=== PATIENT | female | born 1950 | race Caucasian/White ===

== ENCOUNTER → 2018-07-24 | Day surgery (SDC) | payer MEDICARE, OTHER ==
[~2018-07-24] MED LIST: ALLOPURINOL 30300 M1 PO; ATORVASTATIN CA40 MG PO; COUMADIN 4 MG TA4 M1 PO; FLEXERIL PO; GABAPENTIN 100100 MG PO; LASIX 40 MG TAB40 M2 PO; LOPRESSOR50 PO; NORCO 5-325 TA1 EACH PO; OXYBUTYNIN 5 MG5 M2 PO; PROAIR HFA8.5 GM INH; PROTONIX40 M1 PO; REQUIP 1 MG TABL1 M1 PO; SPIRONOLACTONE25 M1 PO; SYMBICORT160 MCG/4. INH; VITAMIN D-32000 UNIT PO
[2018-07-24 10:10] LABS: HEMATOCRIT 38.2 % (37.0-47.0); HEMOGLOBIN 12.4 gm/dL (12.0-15.0); MCH 29.4 pg (26.0-34.0); MCHC 32.5 g/dL (28.0-37.0); MCV 90.3 fL (80.0-100.0); RBC 4.23 mil/uL (4.20-5.00); RDW-CV 14.7 % (10.5-14.5); WBC 5.6 thou/uL (4.0-11.0)
[2018-07-24 10:15] LABS: CREATININE 0.8 mg/dL (0.6-1.3); POTASSIUM 3.7 mmol/L (3.5-5.1)
--- NOTE | 2018-07-24 14:13 | EKG ---
[place] [address] ELECTROCARDIOGRAM REPORT Name: MAMTA JENKINS Room: [facility]#: [id number] Admission: 07/24/18 Attend Phys: Bishop Brown MD Discharge: Date of : 48 Report #: [id number] THIS REPORT FOR: //name// [facility] Test Date: 2018-07-24 Test Time: 09:56:30 Pat Name: MAMTA JENKINS Department: Room: Gender: F Barrel [employer]er: : 1950 Requested By: Bishop Brown Order Number: [id number] Reading MD: Andrew Zaman Measurements Intervals [place] Rate: 63 P: -6 AK: 230 QRS: 24 QRSD: 95 T: 16 QT: 434 QTc: 445 Interpretive Statements Sinus rhythm Prolonged AK interval Low voltage, precordial leads Abnormal R-wave progression, early transition Compared to ECG 10/16/2006 17:23:32 First degree AV block now present Low QRS voltage now present Electronically Signed On 07-24-2018 14:13:02 CDT by Andrew Zaman [email or web address] <ELECTRONICALLY SIGNED> By: Andrew Zaman MD, FACC 07/24/18 [id number] [id number] Andrew Zaman MD, [facility] /EPI
== END | disposition home or self-care (01) ==
LOC: M.SUR 09:18 → EDSTATUS 09:21 → M.SUR 09:22
PROVIDERS: Internal Medicine Gastroenterology
DX: K21.0 Gastro-esophageal reflux disease with esophagitis (principal); K44.9 Diaphragmatic hernia without obstruction or gangrene; I11.0 Hypertensive heart disease with heart failure; I50.9 Heart failure, unspecified; E78.5 Hyperlipidemia, unspecified; E66.09 Other obesity due to excess calories; Z86.73 Personal history of transient ischemic attack (TIA), and cerebral infarction without residual deficits; Z86.718 Personal history of other venous thrombosis and embolism; Z79.01 Long term (current) use of anticoagulants; Z88.8 Allergy status to other drugs, medicaments and biological substances; Z88.0 Allergy status to penicillin; Z79.899 Other long term (current) drug therapy; Z87.891 Personal history of nicotine dependence